=== PATIENT | male | born 1955 | race Caucasian/White ===

== ENCOUNTER 2017-01-09 08:36 | Emergency (ER) | payer OTHER ==
[2017-01-09 08:49] VITALS: RESP 18
[2017-01-09] MEDS ORDERED: NS 1,000 ML IV ONE (09:14)
--- NOTE | 2017-01-09 09:14 | EDPHY ---
H & P Stated Complaint: epigastric pain v/vomit x 1 week, chills - Personal History Tetanus Vaccine Date: < 10 YEARS - Medical/Surgical History Hx Asthma: No Hx Chronic Respiratory Disease: No Hx Diabetes: No Hx Cardiac Disease: Yes Hx Renal Disease: No Hx Cirrhosis: No Hx Alcoholism: No Hx HIV/AIDS: No Hx Splenectomy or Spleen Trauma: No Other PMH: reports CAD with previous NC. firbromyalgia,. chronic fatigue,. von wildenbrans,. HTN - Social History Smoking Status: Former smoker Time Seen by Provider: 01/09/17 09:01 HPI/ROS: CHIEF COMPLAINT: Nausea vomiting x1 week HISTORY OF PRESENT ILLNESS: 61-year-old male medical history significant for idiopathic cardiomyopathy, von Willebrand's disease, complaining of nausea, vomiting, epigastric discomfort for the past 1 week. No dyspnea. No diaphoresis. No dizziness. No abnormal bowel movements. Urinary habits normal. No CP or near syncope. No back or flank pain. PRIMARY CARE PROVIDER:Dr. Fercho Noble [facility] REVIEW OF SYSTEMS: A ten point review of systems was performed and is negative with the exception of the items mentioned in the HPI PAST MEDICAL & SURGICAL HISTORY: Von Willebrand's disease. Cardiomyopathy. Hypertension. SOCIAL HISTORY:daily cigarette use . No use PHYSICAL EXAM (Prior to examination, patient consented to physical exam, hands were washed and my usual and customary physical exam procedures followed) 1) GENERAL: Well-developed, well-nourished, alert and oriented. Appears to be in no acute distress. 2) HEAD: Normocephalic, atraumatic 3) HEENT: Pupils equal, round, reactive to light bilaterally. Sclera anicteric. Nasopharynx, oropharynx, clear, no lesions. Dry mucous membranes Ears bilaterally with normal tympanic membranes. 4) NECK: Full range of motion, no meningeal signs. 5) LUNGS: Clear auscultation bilaterally, no wheezes, no rhonchi, no retractions. 6) HEART: Regular rate and rhythm, no murmur, no heave, no gallop. 7) ABDOMEN: No guarding, no rebound, no focal tenderness, negative McBurney's, negative Kelley's, negative Rovsing's, negative peritoneal sign, 8) MUSCULOSKELETAL: Moving all extremities, no focal areas of tenderness, no obvious trauma. No peripheral edema or discoloration. 9) BACK: No CVA tenderness, no midline vertebral tenderness, no fluctuance, no step-off, no obvious trauma, no visual or palpable abnormality. 10) SKIN: No rash, no petechiae. 11) Psychiatric: Patient is oriented X 3, there is no agitation. DIFFERENTIAL DIAGNOSIS: In no particular order, including but not limited to biliary colic, cholecystitis, peptic ulcer disease, pancreatitis, and gastroenteritis. This is a partial list of diagnoses considered. These considerations are based on history, physical exam, past history and reassessment. (Andrés Serrano) Constitutional: Initial Vital Signs Temperature (C) 36.4 C 01/09/17 08:46 Heart Rate 127 H 01/09/17 08:46 Respiratory Rate 18 01/09/17 08:46 Blood Pressure 128/91 H 01/09/17 08:46 O2 Sat (%) 96 01/09/17 08:46 O2 Delivery Mode Room Air Allergies/Adverse Reactions: aspirin Allergy (Severe, Verified 07/27/14 15:53) Other-Enter Comments Home Medications: Medication Instructions Recorded Hydrochlorothiazide [HCTZ (*)] 25 mg PO Q2D #30 tab 07/29/14 Metoprolol Tartrate [Lopressor 25 25 mg PO BID #30 tab 07/29/14 mg (*)] Famotidine [Pepcid] 20 mg PO DAILY #10 tablet 01/15/15 Ondansetron Odt [Zofran Odt] 4 mg PO Q4PRN PRN #10 tab 01/09/17 Medical Decision Making - Diagnostics Imaging Results: Images reviewed by myself (Andrés Serrano) ED Course/Re-evaluation: 9:14 a.m.: Discussed with secondary supervising physician Dr. Codi Harry in the ER. Old medical records reviewed. 9:57 p.m.: Reviewed the patient's abdominal and chest x-ray. Gross abnormality on chest x-ray, abdominal x-ray multiple air-fluid levels noted. Will obtain CT imaging for evaluation of suspected bowel obstruction. 10:57 a.m.: Discussion with radiologist about the patient's CT results showing a distended gallbladder with no no pericholecystic fluid. However given the patient's complaints of epigastric discomfort, continued nausea and vomiting, ultrasound will be obtained to evaluate possible acute cholecystitis. 1:10 p.m.: Re-evaluation, he is sleeping, easily woken,, asymptomatic. Abdomen is soft no guarding or rebound. Discussed his imaging results. Doubt acute cholecystitis. Doubt bowel obstruction. Doubt acute appendicitis. Doubt mesenteric ischemia. I think the patient can be discharged. I offered admission however he would like to be discharged is comfortable being discharged. He will be discharged with antiemetic prescription. Given usual and customary abdominal precautions and instructions. (Andrés Serrano) I have evaluated and participated in the management of this patient. My co- signature indicates that I have reviewed this chart and that I agree with the findings and the plan of care as documented. My personal history and physical findings include: 61-year-old male with 1 week of nausea vomiting. He states that he has stopped eating because every time he does so he vomits. He has had occasional bowel movements with a small bowel movement this morning. He has not been aware of fever. Earlier he had abdominal pain but this has improved. Vital signs reviewed. On exam heart is regular lungs are clear. He is alert. On examination is abdomen is soft and nontender with decreased bowel sounds present. I reviewed his abdominal x-ray which shows air-fluid levels. CT scan pending to assess for bowel obstruction. CT scan does not show evidence of obstruction. There is a question about the gallbladder and gallbladder ultrasound will be obtained. Gallbladder ultrasound does not show evidence of cholecystitis. The patient has improved during his stay in the emergency department and feels well enough to return home. (Codi Harry) - Data Points Laboratory Results: Laboratory Results 01/09/17 09:05 01/09/17 09:05 Medications Given: Discontinued Medications Sodium Chloride (Ns) 1,000 mls @ 0 mls/hr IV ONCE ONE PRN Reason: Wide Open Stop: 01/09/17 09:15 Last Admin: 01/09/17 09:37 Dose: 1,000 mls Ondansetron HCl (Zofran) 4 mg IVP EDNOW ONE Stop: 01/09/17 09:16 Last Admin: 01/09/17 09:37 Dose: 4 mg Departure - Departure Disposition: Home, Routine, Self-Care Clinical Impression: Volume depletion Nausea & vomiting Qualifiers: Vomiting type: unspecified Vomiting Intractability: non-intractable Qualified Code(s): R11.2 - Nausea with vomiting, unspecified Condition: Good Instructions: Acute Nausea and Vomiting (ED) Additional Instructions: Seek immediate medical attention if you develop new or worsening symptoms, if you develop fevers, chills, inability to tolerate oral intake or any other symptoms that concerns you. Referrals: Fercho Noble MD [Primary Care Provider] - 01/12/17 Prescriptions: Ondansetron Odt [Zofran Odt] 4 mg PO Q4PRN PRN #10 tab PRN Reason: Nausea
[2017-01-09] MEDS ORDERED: ONDANSETRON 4 MG/2 ML VIAL IVP ONE (09:15)
[2017-01-09 09:16] LABS: % IMMATURE GRANULYOCYTES 0.2 % (0.0-1.1); ABSOLUTE IMMATURE GRANULOCYTES 0.01 10^3/uL (0.00-0.10); ADD DIFF? NO; ADD MORPH? NO; ADD SCAN? NO; ATYPICAL LYMPHOCYTE FLAG 0 (0-99); FRAGMENT RBC FLAG 0 (0-99); HEMATOCRIT 43.5 % (40.0-51.0); HEMOGLOBIN 15.7 g/dL (13.7-17.5); LEFT SHIFT FLG 0 (0-99); LIPEMIA HEMOLYSIS FLAG 90 (0-99); MEAN CELL HEMOGLOBIN 33.8 pg (27.9-34.1); MEAN CELL HEMOGLOBIN CONCENTR. 36.1 g/dL (32.4-36.7); MEAN CELL VOLUME 93.5 fL (81.5-99.8); MEAN PLATELET VOLUME 10.3 fL (8.7-11.7); PLATELET CLUMPS FLAG 0 (0-99); PLATELET COUNT 271 10^3/uL (150-400); RED BLOOD CELL COUNT 4.65 10^6/uL (4.40-6.38); RED CELL DISTRIBUTION WIDTH 14.3 % (11.5-15.2)
--- NOTE | 2017-01-09 09:36 | CPEKG ---
Heart Rate: 89 RR Interval: 674 P-R Interval: 176 QRSD Interval: 102 QT Interval: 412 QTC Interval: 502 P [place]: 49 QRS [place]: -14 T Wave [place]: 28 EKG Severity - ABNORMAL ECG - EKG Impression: SINUS RHYTHM EKG Impression: PROLONGED QT INTERVAL Electronically Signed By: Codi Harry 09-Jan-2017 16:24:53
[2017-01-09 09:37] LABS: ALANINE AMINOTRANSFERASE 104 IU/L (21-72); ALBUMIN 4.8 g/dL (3.5-5.0); ALKALINE PHOSPHATASE 81 IU/L (38-126); ANION GAP 18 mEq/L (8-16); ASPARTATE AMINOTRANSFERASE 138 IU/L (17-59); BILIRUBIN,TOTAL 0.7 mg/dL (0.1-1.4); BILIRUBIN-CONJUGATED 0.3 mg/dL (0.0-0.5); BILIRUBIN-UNCONJUGATED 0.4 mg/dL (0.0-1.1); CARBON DIOXIDE 22 mEq/l (22-31); CHLORIDE 102 mEq/L (97-110); CREATININE 0.5 mg/dL (0.7-1.3); GLOMERULAR FILTRATION RATE > 60; GLUCOSE 102 mg/dL (70-100); POTASSIUM 4.1 mEq/L (3.5-5.2); SODIUM 142 mEq/L (134-144)
[2017-01-09 09:47] LABS: TROPONIN I < 0.012 ng/mL (0.000-0.034)
[2017-01-09] MEDS ORDERED: IOPAMIDOL (ISOVUE-300) 100 ML BTL ONE (10:05)
[2017-01-09 11:32] VITALS: PULSE 98
[2017-01-09 13:33] VITALS: BP 143/104; TEMP 98.1; O2SAT 97
== END 2017-01-09 13:35 | disposition home or self-care (01) ==
DX: E86.9 Volume depletion, unspecified (principal); I10 Essential (primary) hypertension; I25.10 Atherosclerotic heart disease of native coronary artery without angina pectoris; Z87.891 Personal history of nicotine dependence
CPT/HCPCS: 71020; 74000; 74177; 76705; 93005; 96374; 99285; J2405; Q9967